=== PATIENT | female | born 1960 | race Caucasian/White ===

== ENCOUNTER 2017-02-09 02:14 | Emergency (ER) | payer SELFPAY ==
[~2017-02-09] VITALS: Ht 162.6 cm; Wt 52.2 kg
[2017-02-09] MEDS ORDERED: oxyCODONE/APAP 5/325 1 TAB TABLET PO ONE (02:45)
[2017-02-09] MEDS ORDERED: NAPR-683 PO (02:47)
[2017-02-09] MEDS ORDERED: HYDR-2758 PO (02:47)
--- NOTE | 2017-02-09 02:49 | PHYS DOC ---
Past Medical History Past Medical History: Hypertension, Hepatitis Past Surgical History: Splenectomy Smoking: Cigarettes Additional Information: 02/26 ppd Alcohol Use: None Drug Use: Marijuana Adult General Chief Complaint Chief Complaint: KNEE INJURY HPI HPI She is a pleasant 56 showed female who was attempting to clean up some spelled wax on the floor tonight when she slipped and fell causing a valgus stress to her knee. She's had problems with this particular leg for 6 months has noted some instability. She denies any numbness and tingling to the leg probably some spasms in the thigh after the fall. She's had localized tenderness to the lateral aspect of the knee with some soft tissue swelling. Patient took some Motrin prior to arrival. Patient's pain is pretty severe but a 9 of 10 at this time and is worse with walking and better with immobilization. Review of Systems Review of Systems Respiratory: Denies cough or shortness of breath [] Cardiovascular: No additional information not addressed in HPI [] GI: Denies abdominal pain, nausea, vomiting, bloody stools or diarrhea [] Musculoskeletal: Denies back pain her main complaint is right knee pain [] Integument: Denies rash or skin lesions [] Neurologic: Denies headache, focal weakness or sensory changes [] All other systems were reviewed and found to be within normal limits, except as documented in this note. Current Medications Current Medications Current Medications Medications (Trade) Dose Ordered Sig/Heaven Start Time Stop Time Status Last Admin Dose Admin Oxycodone/ Acetaminophen (Percocet 5/325) 2 tab 1X ONCE 02/09/17 02:45 02/09/17 02:46 UNV Physical Exam Physical Exam Vital signs recorded on the chart within normal limits Constitutional: Well developed, well nourished, no acute distress, non-toxic appearance. [] HENT: Normocephalic, atraumatic, Neck: Normal range of motion, no tenderness, supple, no stridor. [] Cardiovascular:Heart rate regular rhythm, no murmur [] Lungs & Thorax: Bilateral breath sounds clear to auscultation [] Skin: Warm, dry, no erythema, no rash. [] Back: No tenderness, Extremities: She has tenderness to palpation over the lateral aspect of the right knee there is mild soft tissue swelling along the lateral collateral ligament. Patient has negative valgus and varus stress, negative Tanvir's test negative Ophelia's test which she tolerated. Patient has negative anterior and posterior draw tests. Neurologic: Alert and oriented X 3, normal motor function, normal sensory function, no focal deficits noted. [] Psychologic: Affect normal, judgement normal, anxious and in pain. [] Current Patient Data Vital Signs Vital Signs Date Time Temp Pulse Resp B/P (MAP) Pulse Ox O2 Delivery O2 Flow Rate FiO2 02/09/17 02:19 97.7 88 18 97 Room Air 97.7 EKG EKG [] Radiology/Procedures Radiology/Procedures [] Course & Med Decision Making Course & Med Decision Making Pertinent Labs and Imaging studies reviewed. (See chart for details) []Facilitate placement in a splint patient given oral pain medications after x- rays are completed. There is no obvious signs of fracture on 3 view knee films. Patient could possibly have a ligamentous injury that is minor not requiring surgery at this time. I will give her precautions place her in a knee splint and crutches and have her follow with Dr. Candelario Concepcion Disclaimer Jamey Disclaimer This electronic medical record was generated, in whole or in part, using a voice recognition dictation system. Departure Departure Impression: Primary Impression: Knee sprain Disposition: 01 HOME, SELF-CARE Condition: STABLE Referrals: LAUREL LOWERY MD Patient Instructions: Combined Knee Ligament Sprain-SportsMed, Knee Bracing, Knee Immobilization, Knee Pain, Knee Sprain Additional Instructions: discharge: I've spoken with the patient and/or caregivers. I've explained the patient's condition, diagnosis and treatment plan based on information available to me at this time. I've answered the patient's and/or caregivers questions and addressed any concerns. The patient and/or caregivers have a good understanding the patient's diagnosis, condition and treatment plan as can be expected at this point. Vital signs have been stabilized. The patient's condition is stable for discharge from the emergency department. The patient will pursue further outpatient evaluation with her primary care provider or other designated consulting physician as outlined in the discharge instructions. Patient and/or caregivers are agreeable to this plan of care and follow-up instructions have been explained in detail. The patient and/or caregivers have received these instructions in written format and expressed understanding of these discharge instructions. The patient and her caregivers are aware that if any significant change in condition or worsening of symptoms should prompt him to immediately return to this of the closest emergency department. If an emergent department is not readily available I would encourage him to call 911. Although there is no acute fracture noted on x-ray today this does not mean subtle fractures are not missed on initial presentation. If your symptoms are not improved within 1 week or if symptoms worsen despite oral treatment with pain medications I would advise follow-up with your primary care doctor to have a repeat set of x-rays completed to ensure no subtle fractures were missed. Please understand that sometimes x-rays are missed red and if there is a misreading of your x-rays she will be contacted by the emergency room physician to talk about appropriate treatment. Scripts Naproxen (NAPROSYN) 500 Mg Tablet 1 TAB PO BID, #14 TAB 1 Refill Prov: WYATT APONTE MD 02/09/17 Hydrocodone Bit/Acetaminophen (HYDROCODONE-APAP 5-325 ) 1 Each Tablet 1-2 TAB PO PRN Q6HRS Y for PAIN for 5 Days, #10 TAB 0 Refills Prov: WYATT APONTE MD 02/09/17 WYATT APONTE MD Feb 09, 2017 02:49
[2017-02-09 03:00] VITALS: BP 158/69
--- NOTE | 2017-02-09 09:05 | RAD ---
3 views right knee 02/09/2017 Clinical indication: Knee pain post fall Comparison: None. Findings: No acute fracture or traumatic malalignment. Joint spaces are maintained. Soft tissues unremarkable. Evaluation for effusion is limited due to oblique lateral positioning. Impression: No acute osseous abnormality.
== END 2017-02-09 03:05 | disposition home or self-care (01) ==
LOC: ER 02:14
DX: S83.91XA Sprain of unspecified site of right knee, initial encounter (principal); I10 Essential (primary) hypertension; F17.210 Nicotine dependence, cigarettes, uncomplicated; F12.10 Cannabis abuse, uncomplicated; Z90.81 Acquired absence of spleen; W01.0XXA Fall on same level from slipping, tripping and stumbling without subsequent striking against object, initial encounter; Y93.89 Activity, other specified; Y92.89 Other specified places as the place of occurrence of the external cause; Y99.8 Other external cause status
CPT/HCPCS: 29505; 73562; 99284-25

== ENCOUNTER 2019-11-25 04:15 | Emergency (ER) | payer SELFPAY ==
[~2019-11-25] VITALS: Ht 157.5 cm; Wt 90.1 kg
[~2019-11-25 04:15] MED LIST: HYDR-2761 PO; NAPR-683 PO
[2019-11-25] MEDS ORDERED: HYDR-3164 PO (04:54)
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
--- NOTE | 2019-11-25 04:59 | RAD ---
Left shoulder 3 views: Reason for examination: Pain. No acute fracture or dislocation is evident. The bone density is normal. No abnormal periosteal reaction is seen. Joint spaces are maintained. IMPRESSION: No acute bony abnormality evident at the left shoulder. Electronically signed by: Maricarmen Greene MD (11/25/2019 4:56 AM) DODIE
[2019-11-25] MEDS ORDERED: KETOROLAC 30 MG/ML VIAL. IM ONE (05:00)
[2019-11-25 05:12] VITALS: BP 150/86
== END 2019-11-25 05:12 | disposition home or self-care (01) ==
LOC: ER 04:15
DX: G89.29 Other chronic pain (principal); M54.89 Other dorsalgia; M79.602 Pain in left arm; M79.651 Pain in right thigh; I10 Essential (primary) hypertension; F17.200 Nicotine dependence, unspecified, uncomplicated; W18.39XA Other fall on same level, initial encounter; Y93.89 Activity, other specified; Y92.89 Other specified places as the place of occurrence of the external cause; Y99.8 Other external cause status
CPT/HCPCS: 73030; 96372; 99283; J1885